=== PATIENT | male | born 1970 | race Caucasian/White ===

== ENCOUNTER 2019-02-09 06:22 | Day surgery (SDC) | payer OTHER ==
[~2019-02-09] VITALS: Ht 188 cm; Wt 101.5 kg
[2019-02-09] VITALS (13 sets, daily range): BP systolic 95–138; BP diastolic 56–80
[2019-02-09] MEDS ORDERED: normal saline 1000ml 1,000 ML IV SCH (06:40)
[2019-02-09] MEDS ORDERED: LORA-269 PO (07:20)
[2019-02-09] MEDS ORDERED: THI100I (07:20)
[2019-02-09] MEDS ORDERED: FOLI0.4T2 PO (07:20)
[2019-02-09] MEDS ORDERED: MULT-955 PO (07:20)
[2019-02-09] MEDS ORDERED: SERT25TA PO (07:20)
[2019-02-09] MEDS ORDERED: ASCO500C15 PO (07:20)
[2019-02-09] MEDS ORDERED: PRAZ5CAP PO (07:20)
[2019-02-09] MEDS ORDERED: FLO0.4C PO (07:20)
[2019-02-09 07:22] LABS: BASOPHILS # (AUTO) 0.1 X10'3 (0-0.2); BASOPHILS % (AUTO) 1.1 % (0-1); EOSINOPHILS # (AUTO) 0.2 X10'3 (0-0.9); HEMATOCRIT 41.3 % (42.0-52.0); LYMPHOCYTES # (AUTO) 2.8 X10'3 (1.1-4.8); LYMPHOCYTES % (AUTO) 39.5 % (21-51); MEAN CORPUSCULAR HEMOGLOBIN 32.1 PG (27.0-31.0); MEAN CORPUSCULAR HGB CONC 33.9 g/dL (33.0-36.5); MEAN CORPUSCULAR VOLUME 94.6 FL (78-98); MEAN PLATELET VOLUME 8.6 FL (7.4-10.4); MONOCYTES # (AUTO) 0.7 X10'3 (0-0.9); MONOCYTES % (AUTO) 9.6 % (2-12); NEUTROPHILS # (AUTO) 3.3 X10'3 (1.8-7.7); NEUTROPHILS % (AUTO) 46.8 % (42-75); PLATELET COUNT 199 X10'3 (140-440); RED BLOOD COUNT 4.36 X10'6 (4.70-6.10); RED CELL DISTRIBUTION WIDTH 13.7 % (11.5-14.5)
[2019-02-09 07:37] LABS: ALBUMIN 3.6 G/DL (3.4-5.0); ANION GAP 8 (8-16); BLOOD UREA NITROGEN 12 MG/DL (7-18); BUN/CREATININE RATIO 12.4 (5.4-32.0); CALCIUM 8.9 MG/DL (8.5-10.1); CHLORIDE 108 MMOL/L (99-107); CREATININE 0.97 MG/DL (0.60-1.10); GLUCOSE 85 MG/DL (70-104); POTASSIUM 3.8 MMOL/L (3.5-5.1); SODIUM 141 MMOL/L (135-145); TOTAL CARBON DIOXIDE 24.9 MMOL/L (24-32); eGFR 82 ML/MIN
[2019-02-09] MEDS ORDERED: FLU VACC QS 2019-20 (6 MOS UP) 60 MCG/0.5 ML VIAL IMVAC ONE (08:05)
[2019-02-09] MEDS ORDERED: midazolam 2 mg/2 ml injection IV PRN (08:10)
[2019-02-09] MEDS ORDERED: fentaNYL/PF 50MCG/1 ML 2ML syringe IV PRN (08:10)
[2019-02-09] MEDS ORDERED: LIDOcaine 1%/PF 5ML 10 MG/ML VIAL SQ ONE (08:10)
[2019-02-09] MEDS ORDERED: sodium chloride 0.45% 1,000 ML IV SCH (08:52)
[2019-02-09] MEDS ORDERED: midazolam 2 mg/2 ml injection ONE (09:11)
[2019-02-09] MEDS ORDERED: fentaNYL/PF 50MCG/1 ML 2ML syringe ONE (09:11)
== END 2019-02-09 12:55 | disposition home or self-care (01) ==
LOC: SSTAY O 06:22 → EEVIPCON 08:30 → SSTAY O 12:55
PROVIDERS: ATTEND Radiology Diagnostic Radiology
DX: R91.8 Other nonspecific abnormal finding of lung field (principal); J18.9 Pneumonia, unspecified organism; Z23 Encounter for immunization; Z79.01 Long term (current) use of anticoagulants; Z87.891 Personal history of nicotine dependence; Z72.89 Other problems related to lifestyle; Z79.899 Other long term (current) drug therapy
CPT/HCPCS: 32405; 36415; 71045; 77012; 80048; 85025; 85610; 99152; 99153; G0008; J2250; J3010; Q2037